=== PATIENT | female | born 1945 | race Caucasian/White ===

== ENCOUNTER 2022-04-26 15:10 | Observation (INO) ==
[2022-04-26] MEDS ORDERED: SODIUM CHLORIDE 0.9% 1,000 ML IV STA (16:07)
[2022-04-26 16:31] LABS: Albumin 3.1 G/DL (3.4-5.0); Bilirubin,Total 0.9 MG/DL (0.20-1.00); Calcium 8.4 MG/DL (8.5-10.1); Osmolality,Calculated 282.4 MOS/KG (273-304); Total Protein 6.3 G/DL (6.4-8.2)
[2022-04-26] MEDS ORDERED: POTASSIUM CHLORIDE RIDER 20 MEQ/100 ML PREMIX IV STA (17:10)
[2022-04-26] MEDS ORDERED: MAGNESIUM SULF RIDER 2 GM/50 ML PREMIX IV ONE (17:10)
[2022-04-26 17:15] LABS: Basophils # 0.1 10*3/uL (0.0-0.2); Basophils % 0.6 % (0.0-0.8); Eosinophils % 0.4 % (0.00-10.9); Hematocrit 44.2 VOL% (35.7-47.0); Hemoglobin 14.7 GM/DL (12.0-16.0); Immature Granulocytes % 0.4 %; Immature Granulocytes Absolute 0.04 #; Lymphocytes # 1.1 10*3/uL (1.4-4.0); Lymphocytes % 12.2 % (21.3-54.2); Mean Corpuscular HGB Conc 33.3 GM/DL (32-36); Mean Corpuscular Volume 92.1 FL (87-102); Monocytes # 0.9 10*3/uL (0.11-0.8); Monocytes % 9.8 % (1.7-12.7); Neutrophils % 76.6 % (38.7-73.9); Platelet Count 120 T/CUMM (130-400); Red Cell Distribution Width 13.7 % (9.3-17.3); White Blood Count 8.96 T/CUMM (4-12)
[2022-04-26 18:04] LABS: Bilirubin,Urine Negative (Negative); Blood, Urine Negative (Negative); Glucose,Urine (UA) Negative (Negative); Ketones,Urine Negative (Negative); Nitrite,Urine Negative (Negative); Protein,Urine Negative (Negative); Urine Appearance Clear (Clear); Urine Color Yellow (Yellow); Urine Specific Gravity >= 1.030 (1.001-1.035); Urine pH 5.5 (4.5-8.0)
[2022-04-26 18:07] LABS: Bacteria,Urine Occasional /HPF (Few); Hyaline Casts,Urine 69 /LPF (0-3); Mucus,Urine Occasional /LPF (Occasional); RBC,Urine 5 /HPF (0-4); Squamous Epithelial Cell,Urine Occasional /HPF (0-10)
[2022-04-26] MEDS: POTASSIUM CHLORIDE RIDER 10 MEQ/100 ML PREMIX IV SCH ×2 (18:31→20:22)
[2022-04-26] MEDS ORDERED: ONDANSETRON 4 MG/2 ML VIAL IV PRN (18:36)
[2022-04-26] MEDS ORDERED: hydrALAZINE 20 MG/1 ML VIAL IV PRN (19:10)
[2022-04-26] MEDS ORDERED: MAGNESIUM SULF RIDER 4 GM/100 ML PREMIX IV ONE (20:00)
[2022-04-26] MEDS: SODIUM CHLORIDE 0.9% 1,000 ML IV SCH (20:22)
[2022-04-26] MEDS ORDERED: CIPROFLOXACIN 500 MG TABLET PO SCH (21:00)
[2022-04-26] MEDS: ENOXAPARIN 40 MG/0.4 ML SYRINGE SUBCUT SCH (22:19)
[2022-04-26] MEDS: METOPROLOL TARTRATE 100 MG TABLET PO SCH (22:20)
[2022-04-27 05:19] LABS: Basophils % 0.5 % (0.0-0.8); Eosinophils # 0.1 10*3/uL (0.0-0.87); Eosinophils % 1.5 % (0.00-10.9); Hematocrit 37.2 VOL% (35.7-47.0); Hemoglobin 12.1 GM/DL (12.0-16.0); Immature Granulocytes % 0.3 %; Immature Granulocytes Absolute 0.02 #; Lymphocytes % 32.6 % (21.3-54.2); Mean Corpuscular HGB Conc 32.5 GM/DL (32-36); Mean Corpuscular Volume 93.5 FL (87-102); Mean Platelet Volume 12.1 FL (9.6-12.0); Monocytes # 0.7 10*3/uL (0.11-0.8); Monocytes % 11.9 % (1.7-12.7); Neutrophils % 53.2 % (38.7-73.9); Platelet Count 139 T/CUMM (130-400); Red Blood Count 3.98 MC/CUMM (3.8-5.5); Red Cell Distribution Width 13.7 % (9.3-17.3); White Blood Count 6.07 T/CUMM (4-12)
[2022-04-27] MEDS: SODIUM CHLORIDE 0.9% 1,000 ML IV SCH ×3 (05:26→20:08)
[2022-04-27] MEDS: LEVOTHYROXINE 25 MCG TABLET PO SCH (05:37)
[2022-04-27 06:03] LABS: Albumin 2.8 G/DL (3.4-5.0); Bilirubin,Total 1.1 MG/DL (0.20-1.00); Calcium 8.4 MG/DL (8.5-10.1); Osmolality,Calculated 283.1 MOS/KG (273-304); Potassium 3.5 MMOL/L (3.5-5.1); Total Protein 5.8 G/DL (6.4-8.2)
[2022-04-27 06:34] LABS: Thyroid Stimulating Hormone 0.676 uIU/ml (0.358-3.74)
[2022-04-27] MEDS ORDERED: POTASSIUM CHLORIDE 20 MEQ TABLET PO ONE (09:27)
[2022-04-27] MEDS: ASPIRIN EC 81 MG TABLET PO SCH (11:17)
[2022-04-27] MEDS: FLUCONAZOLE 100 MG TABLET PO SCH (11:17)
[2022-04-27] MEDS: METOPROLOL TARTRATE 100 MG TABLET PO SCH ×2 (11:17→20:50)
[2022-04-27] MEDS: ESCITALOPRAM 10 MG TABLET PO SCH (11:18)
[2022-04-27] MEDS: PANTOPRAZOLE 40 MG TABLET PO SCH (11:18)
[2022-04-27] MEDS: ENOXAPARIN 40 MG/0.4 ML SYRINGE SUBCUT SCH (20:51)
[2022-04-28] MEDS: SODIUM CHLORIDE 0.9% 1,000 ML IV SCH (04:40)
[2022-04-28 05:32] LABS: Basophils # 0.1 10*3/uL (0.0-0.2); Basophils % 0.9 % (0.0-0.8); Eosinophils # 0.2 10*3/uL (0.0-0.87); Eosinophils % 3.4 % (0.00-10.9); Hematocrit 34.6 VOL% (35.7-47.0); Hemoglobin 11.1 GM/DL (12.0-16.0); Lymphocytes # 2.1 10*3/uL (1.4-4.0); Mean Corpuscular HGB Conc 32.1 GM/DL (32-36); Mean Platelet Volume 12.5 FL (9.6-12.0); Monocytes # 0.7 10*3/uL (0.11-0.8); Monocytes % 12.4 % (1.7-12.7); Neutrophils % 44.3 % (38.7-73.9); Platelet Count 110 T/CUMM (130-400); Red Blood Count 3.53 MC/CUMM (3.8-5.5); Red Cell Distribution Width 14.2 % (9.3-17.3); White Blood Count 5.33 T/CUMM (4-12)
[2022-04-28] MEDS: LEVOTHYROXINE 25 MCG TABLET PO SCH (05:35)
[2022-04-28 05:47] LABS: Calcium 8.3 MG/DL (8.5-10.1); Osmolality,Calculated 281.3 MOS/KG (273-304)
[2022-04-28 05:50] LABS: Albumin 2.5 G/DL (3.4-5.0); Bilirubin,Total 0.8 MG/DL (0.20-1.00); Calcium 8.2 MG/DL (8.5-10.1); Potassium 3.9 MMOL/L (3.5-5.1); Total Protein 5.6 G/DL (6.4-8.2)
[2022-04-28] MEDS ORDERED: TISSUE ADHESIVE 1 EACH APPLICATOR TOP ONE (06:02)
[2022-04-28] MEDS ORDERED: LIDOCAINE 1%/EPI INJ 20 ML VIAL ONE (06:02)
[2022-04-28] MEDS ORDERED: LOSARTAN 50 MG TABLET PO SCH (09:00)
[2022-04-28] MEDS: METOPROLOL TARTRATE 100 MG TABLET PO SCH (10:42)
[2022-04-28] MEDS: ESCITALOPRAM 10 MG TABLET PO SCH (10:43)
[2022-04-28] MEDS: FLUCONAZOLE 100 MG TABLET PO SCH (10:43)
[2022-04-28] MEDS: ASPIRIN EC 81 MG TABLET PO SCH (10:44)
[2022-04-28] MEDS: PANTOPRAZOLE 40 MG TABLET PO SCH (10:44)
[2022-04-28 11:13] VITALS: BP 137/65
== END 2022-04-28 13:17 ==
LOC: N.ED 15:10 → N.EDINP 15:10 → SUATTDRO 18:36 → N.TELEN 22:49
PROVIDERS: ADMIT Family Medicine; ATTEND Internal Medicine